=== PATIENT | female | born 1985 | race Hispanic/Latino ===

== ENCOUNTER 2019-08-09 15:33 | Emergency (ER) | payer SELFPAY ==
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
[2019-08-09] MEDS ORDERED: HYDROcodone/Acetaminophen 5/325 mg Tablet ONE (16:23)
[2019-08-09] MEDS ORDERED: Acetaminophen 325 MG TAB ONE (16:24)
[2019-08-09] MEDS ORDERED: Ibuprofen 800 MG TAB ONE (16:24)
== END 2019-08-09 20:00 | disposition home or self-care (01) ==
LOC: MADERS 15:33
DX: S80.01XA Contusion of right knee, initial encounter (principal); V43.52XA Car driver injured in collision with other type car in traffic accident, initial encounter